=== PATIENT | female | born 1995 | race Caucasian/White ===

== ENCOUNTER 2020-09-27 15:34 | Emergency (ER) | payer BC, SELFPAY ==
[2020-09-27 15:48] VITALS: BP 100/66; PULSE 99; RESP 18; TEMP 37; O2SAT 100; BMI 19.3
[2020-09-27 15:55] VITALS: BP 100/66; PULSE 99; RESP 18; TEMP 37; O2SAT 100; BMI 19.3
--- NOTE | 2020-09-27 16:07 | HMH.EDUTC ---
[facility] [place] Disposition Clinical Impression: Impetigo Disposition: Home, Self-Care Condition on Discharge: Good Instructions: Impetigo, DI for Impetigo, Cephalexin, Mupirocin Additional Instructions: Apply ointment to area as prescribed Take oral medication as prescribed *Follow up with Family Doctor for test results of Herpes testing and further treatment if needed Return if needed FOllow up with Family Doctor for further treatment and evaluation Straight to ER if any life threatening symptoms Prescriptions: Mupirocin [Bactroban 2% Ointment 22gm tube] 1 applicatio TP TID 10 Days #1 tube Transmission Status: Received by [id number] cephALEXin [Keflex 500mg Cap] 500 mg PO Q6H 10 Days #40 cap Transmission Status: Received by [id number] Referrals: PCP,No [Primary Care Provider] - As needed Time of Disposition: 16:20 Medical Decision Making - William Inquiry Pt receiving controlled substance: No William was queried for this patient: No Vital Signs: 09/27/20 15:48 09/27/20 15:55 Temperature 98.6 F 98.6 F Temperature Source Oral Oral Pulse Rate [Left Radial] 99 H 99 H Respiratory Rate 18 18 Blood Pressure [Right Arm] 100/66 L 100/66 L Blood Pressure Mean [Right Arm] 77 77 Blood Pressure Source [Right Arm] Automatic Cuff Automatic Cuff Blood Pressure Position [Right Arm] Sitting Sitting 02 Sat by Pulse Oximetry 100 100 Oxygen Delivery Method Room Air Room Air Orders (Tests/Meds): ORDERS Category Date Time Status HSV 1/2 PCR, (CSF,WB,SERUM) Routine Lab 09/27/20 16:08 Ordered [facility] [place] HPI - General Stated complaint: rash on face Time Seen by Provider: 09/27/20 16:08 Mode of Arrival: Ambulatory Source of Information: Patient Limitations: No Limitations Description of Symptoms (Recalled from Triage Doc. by RN): pt states she has a rash on her upper lip that she noticed a few days ago. She has tried antibiotic ointment with no improvement. HEENT Symptoms (Recalled from RN notes): No Resp Symptoms (Recalled from RN notes): No Skin Symptoms (Recalled from RN notes): No MS Symptoms (Recalled from RN notes): No Functional Status (Recalled from RN notes): WNL - History of Present Illness Provider Complaint: Patient states that she noticed a rash on her upper lip States that it has continued to get worse States that today he has got larger and now goes up to her nose and is yellowish color so she come in to get it checked State that she was with someone recently that she heard has Herpes and she wanted to get checked for that too - Related Data Previous Rx's Medication Instructions Recorded Mupirocin [Bactroban 2% Ointment 1 applicatio TP TID 10 Days #1 tube 09/27/20 22gm tube] cephALEXin [Keflex 500mg Cap] 500 mg PO Q6H 10 Days #40 cap 09/27/20 Allergies Allergy/AdvReac Type Severity Reaction Status Date / Time No Known Allergies Allergy Verified 09/27/20 16:04 - Worker's Comp Is this a Worker's Comp case?: No [facility] History - Hepatitis A Screen Drug use history?: No High risk sexual behaviors?: No History of sexually transmitted infection?: No Currently employed?: No Childcare worker?: No Do you have indoor plumbing?: Yes Do you have electricity?: Yes Attestation statement:: This patient has been screened for Hepatitis A risk factors. I have reviewed the patient's past medical history: Yes - Social History Alcohol Intake: never Occupational Status: other ROS Obtained: Yes All systems reviewed & no additional complaints, Yes Systems reviewed as appropriate & no additional complaints - Constitutional Constitutional: Reports system reviewed and no additional complaints, except as docu - Integumentary/Breasts Skin/Breast: Reports lesions Physical Exam - General General appearance: alert, in no apparent distress - Expanded Head Exam 1 - Imeptigo like lesion noted with
[2020-09-27 16:32] VITALS: BP 100/66; PULSE 99; RESP 18; TEMP 37; O2SAT 100
[2020-09-29 12:03] LABS: HSV 2 IgG, Type Spec <0.91 index (0.00-0.90)
== END 2020-09-27 16:35 | disposition home or self-care (01) ==
PROVIDERS: Emergency Provider Nurse Practitioner
DX: L01.00 Impetigo, unspecified (principal)
CPT/HCPCS: 86695; 86790; 99201

== ENCOUNTER 2020-10-20 11:07 | Emergency (ER) | payer BC, SELFPAY ==
[2020-10-20 11:08] VITALS: BP 119/83; PULSE 67; RESP 16; TEMP 36.6; O2SAT 99; BMI 18.8
--- NOTE | 2020-10-20 11:21 | HMH.EDUTC ---
[facility] [place] Clinical Impression: Viral syndrome, Encounter for screening for COVID-19 Disposition: Home, Self-Care Condition on Discharge: Good Instructions: DI for Viral Upper Respiratory Infection -- Adult, DI for COVID-19 (Suspected or Confirmed ), Coronavirus Disease 2019, Preventing the Spread of Coronavirus Discharge Instructions Additional Instructions: *Monitor Temp, Over the counter Motrin or Tylenol as directed/as needed Tylenol every 4 hours and Motrin every 6 hours (as long as your family doctor has told you that you can take it) for fever or pain. and straight to ER if unable to lower temp less than 101.0 after medication given *Warm salt water gargles may help to soothe the throat *Throat Lozenges *Warm fluids like tea with honey may help to soothe the throat *Sleep elevated *Humidifier/Vaporizer Follow up IMMEDIATELY for new or worsening symptoms or no Noticeable improvement over the next 48-72 hours. 911 for difficulty breathing or swallowing You were tested for today for COVID19 your test result should be back in the next 24-48 hours, you may call to the [facility] to see if your test results are back in the next 48 hours [phone] [facility] hours are 9am-9pm You was given a handout with instructions for Self Quarantine and Self isolation for while you wait on test results and what to do if they are positive If you are positive the Health Dept will be contacting you also Referrals: PCP,No [Primary Care Provider] - As needed Forms: Work/School Release Time of Disposition: 11:32 Medical Decision Making - William Inquiry Pt receiving controlled substance: No William was queried for this patient: No Vital Signs: 10/20/20 11:08 Temperature 97.8 F Temperature Source Oral Pulse Rate [Right] 67 Respiratory Rate 16 Blood Pressure [Right Arm] 119/83 Blood Pressure Mean [Right Arm] 95 02 Sat by Pulse Oximetry 99 - Lab Data Lab results reviewed: Yes: I reviewed the patient's lab results. Orders (Tests/Meds): ORDERS Category Date Time Status Covid-19 Nasal PCR Sendout P&C Stat Lab 10/20/20 11:15 [place] [facility] [place] - General Stated complaint: body aches,headache Time Seen by Provider: 10/20/20 11:21 Description of Symptoms (Recalled from Triage Doc. by RN): pt request covid test pt c/o HOLM sore throat, body aches HEENT Symptoms (Recalled from RN notes): Yes Resp Symptoms (Recalled from RN notes): Yes Skin Symptoms (Recalled from RN notes): No MS Symptoms (Recalled from RN notes): No Functional Status (Recalled from RN notes): wnl - History of Present Illness Provider Complaint: Patient states that she is wanting to get tested for COVID States that she has been having scratchy throat, body aches, chills and headache State that she has not been around anyone that she is aware of but still wanted to get tested - Related Data Previous Rx's Medication Instructions Recorded Mupirocin [Bactroban 2% Ointment 1 applicatio TP TID 10 Days #1 tube 09/27/20 22gm tube] cephALEXin [Keflex 500mg Cap] 500 mg PO Q6H 10 Days #40 cap 09/27/20 Allergies Allergy/AdvReac Type Severity Reaction Status Date / Time No Known Allergies Allergy Verified 10/20/20 11:16 - Worker's Comp Is this a Worker's Comp case?: No Is this an H Worker's Comp?: No Is this a [place] Worker's Comp?: No [facility] History - Hepatitis A Screen Drug use history?: No High risk sexual behaviors?: No History of sexually transmitted infection?: No Currently employed?: No Childcare worker?: No Do you have indoor plumbing?: Yes Do you have electricity?: Yes Attestation statement:: This patient has been screened for Hepatitis A risk factors. I have reviewed the patient's past medical history: Yes - Social History Alcohol Intake: never Occupational Status: other ROS Obtained: Yes All systems reviewed & no additional complaints, Yes Systems reviewed as appropriate & no additional complaints - Constitutional
[2020-10-20 11:31] LABS: UTC Influenza A Antigen Negative (Negative)
[2020-10-20 11:32] LABS: UTC Influenza B Antigen Negative (Negative)
[2020-10-20 11:34] VITALS: BP 119/83; PULSE 67; RESP 16; TEMP 36.6; O2SAT 99
[2020-10-21 10:41] LABS: Covid-19 Nasal PCR Sendout P&C POSITIVE
--- NOTE | 2020-10-21 18:15 | PC.NURSE ---
PT NOTIFIED OF POSITIVE COVID RESULT
== END 2020-10-20 11:35 | disposition home or self-care (01) ==
PROVIDERS: Emergency Provider Nurse Practitioner
DX: U07.1 COVID-19 (principal)
CPT/HCPCS: 87804; 99202; G0463; U0004

== ENCOUNTER → 2021-09-17 12:57 | Outpatient (CLI) | payer BC, SELFPAY | PROVIDERS: Visit Provider Nurse Practitioner Family | DX: Z20.822 Contact with and (suspected) exposure to COVID-19 (principal) | CPT/HCPCS: C9803; U0003; U0005 ==

== ENCOUNTER 2022-03-20 18:51 | Emergency (ER) | payer OTHER, SELFPAY ==
[2022-03-20 18:53] VITALS: BP 127/91; PULSE 86; RESP 18; TEMP 36.8; O2SAT 100; BMI 19.9
--- NOTE | 2022-03-20 19:58 | HMH.EDGENADL ---
ED Disposition Clinical Impression: Laceration of right forearm Qualifiers: Encounter type: initial encounter Qualified Code(s): S51.811A - Laceration without foreign body of right forearm, initial encounter Disposition: Home, Self-Care Condition on Discharge: Good Instructions: DI for Laceration Repair Additional Instructions: You have been evaluated for lacerations to the right forearm. Please keep wounds clean, dry. Do not get them wet for 24 hours. Okay to shower normally after that. Sutures need to be removed in 7 to 10 days. Return to the emergency department or go to your primary care doctor. Return to the emergency department for any new or worsening symptoms, pain, bleeding, fever, wound drainage or any other concerns Referrals: Provider,Referral, MD [Primary Care Provider] - Time of Disposition: 20:05 - Critical Care Critical Care Time: No Attestation: On 03/20/22, the high probability of a clinically significant, sudden or life threatening deterioration of the following system(s) required my full and direct attention, intervention and personal management. The time I documented below is in addition to time spent performing reported procedures but includes the following listed in this critical care notation. Medical Decision Making - Medical Records Medical records reviewed: Yes: I reviewed the patient's medical records. - William Inquiry Pt receiving controlled substance: No Vital Signs: 03/20/22 18:53 Temperature 98.3 F Temperature Source Oral Pulse Rate [Apical] 86 Respiratory Rate 18 Blood Pressure [Right Arm] 127/91 H Blood Pressure Mean [Right Arm] 103 Blood Pressure Source [Right Arm] Automatic Cuff Blood Pressure Position [Right Arm] Sitting 02 Sat by Pulse Oximetry 100 Oxygen Delivery Method Room Air Orders (Tests/Meds): ED MEDICATIONS Discontinued Medications Generic Name Dose Route Start Last Admin Trade Name Gregq PRN Reason Stop Dose Admin Lidocaine HCl 5 ml 03/20/22 19:18 03/20/22 19:46 Lidocaine 1% 10ml Mdv SQ 03/20/22 19:19 5 ml ONCE ONE Administration Medical Decision Narrative: In summary this is a 26-year-old [id number] female presenting to the emergency department lacerations to the right forearm. Clinically stable on arrival. Vital signs within normal limits. Sensation intact in the right hand. 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 Strong radial and ulnar pulses. Wounds copiously irrigated and explored. Anesthetized with 1% lidocaine. No foreign bodies identified. She has no bony tenderness to suggest fracture. I suggested an x-ray. She says she does not have insurance, does not want to have x-rays performed. I believe this is reasonable. Tetanus updated. Lacerations repaired with sutures. Procedure well-tolerated. Patient counseled on wound care management. Recommended PCP follow-up for suture removal in 7 to 10 days. Given return precautions. Stable for discharge. General Adult HPI - General Chief complaint: Wound/Laceration Stated complaint: laceration Time Seen by Provider: 03/20/22 19:59 Mode of Arrival: Ambulatory Source of Information: Patient Limitations: No Limitations Description of Symptoms (Recalled from ER Triage Doc. by RN): pt states that roughly 10 minutes ago she put her right arm through a glass door putting 3 lacerations on her right wrist and outer arm. - History of Present Illness HPI narrative: 26-year-old male presenting to the emergency department with lacerations to the right arm. She was pushing on a glass door just prior to arrival, glass cracked and her arm slipped through it. She sustained a laceration near the elbow. No other laceration near the wrist on the thumb side. She had bleeding. Now controlled. Denies any pain with wrist or elbow motion. No numbness, weakness, tingling in the right hand. She is right-hand dominant. Not know her most recent tetanus vaccine. No medica
[2022-03-20 20:07] VITALS: BP 124/62; PULSE 78; RESP 17; TEMP 36.7; O2SAT 99
== END 2022-03-20 20:15 | disposition home or self-care (01) ==
PROVIDERS: Emergency Provider Emergency Medicine
DX: S51.811A Laceration without foreign body of right forearm, initial encounter (principal); Z23 Encounter for immunization
CPT/HCPCS: 12002; 90471; 90715; 99283

== ENCOUNTER 2022-03-30 15:22 | Emergency (ER) | payer OTHER, SELFPAY ==
[2022-03-30 15:54] VITALS: BP 120/48; PULSE 77; RESP 16; TEMP 36.8; O2SAT 96; BMI 19.9
[2022-03-30 15:56] VITALS: BP 120/48; PULSE 77; RESP 16; TEMP 36.8
== END 2022-03-30 16:26 | disposition home or self-care (01) ==
LOC: UTC 16:24
PROVIDERS: Emergency Provider Nurse Practitioner Family
DX: Z48.02 Encounter for removal of sutures (principal)
CPT/HCPCS: 99211; G0463

== ENCOUNTER 2023-10-23 18:15 | Emergency (ER) | payer BC, OTHER, SELFPAY ==
[2023-10-23 18:17] VITALS: BP 130/89; PULSE 66; RESP 16; TEMP 36.6; O2SAT 100
--- NOTE | 2023-10-23 18:40 | ED_ITS ---
Discharge Plan Disposition Patient Disposition: Home, Self-Care Prescriptions Prescriptions: New amoxicillin-pot clavulanate 875-125 mg tablet 1 tab PO BID 7 Days Qty: 14 0RF No Action cephalexin 500 MG capsule 500 mg PO Q6H 10 Days Qty: 40 0RF mupirocin 22 GM ointment 1 applicatio TP TID 10 Days Qty: 1 0RF Referrals Follow up/Referrals: Provider,Referral, MD [Primary Care Provider] - See instructions Activity Restrictions/Add. Instructions Additional Instructions/Restrictions: Call your family doctor to establish care for this visit to the emergency department and schedule follow-up within 48 hours to ensure improvement. If you have any worsening of your condition or any other concerning signs or symptoms, return to the emergency department or your primary care doctor for further evaluation. If you begin to have fevers, facial swelling, redness, or pain opening jaw, begin taking Augmentin. Be sure to follow-up with dentistry Clinical Impressions Clinical Impression: Pain due to dental caries Discharge ED Provider: Ifeanyi Paz General Adult HPI General Chief complaint: Dental/Oral Stated complaint: tooth ache on left side Time Seen by Provider: 10/23/23 18:17 Mode of Arrival: Ambulatory Source of Information: Patient Limitations: No Limitations Description of Symptoms (Recalled from ER Triage Doc. by RN): Patient reports a broken tooth on the left side, in the back of her mouth. Complaint of pain and swelling for a while now. States that she hasn't had time to go to the dentist to have the tooth fixed. History of Present Illness HPI narrative: Otherwise healthy 28-year-old female with history of dental caries presenting with dental pain. Has been going on for a few weeks. Got worse acutely yesterday into today. Having difficulty chewing secondary to pain. No facial swelling, difficulty or pain with range of motion of neck, pain with swallowing, fever chills, or any other concerns. Does not know if it has impacted wisdom teeth, or infection so presents for further evaluation. Related Data Previous Rx's Medication Instructions Recorded cephalexin 500 mg capsule 500 mg PO Q6H 10 days #40 caps 09/27/20 mupirocin 2 % topical ointment 1 applicatio TP TID 10 days #1 tube 09/27/20 amoxicillin 875 mg-potassium 1 tab PO BID 7 days #14 tabs 10/23/23 clavulanate 125 mg tablet Allergies Allergy/AdvReac Type Severity Reaction Status Date / Time No Known Allergies Allergy Verified 10/20/20 11:16 [facility] Disclaimer: The information contained in this section may have been updated after the patient was seen, as this information can be updated by other users. Social History Smoking Status: Current every day smoker alcohol intake: never current occupational status: other Travel in the last 8 weeks: None ROS Obtained: Yes All systems reviewed & no additional complaints except as documented Physical Exam General General appearance: alert and in no apparent distress Head Head exam: atraumatic and normocephalic Eye Eye exam: Present normal appearance, PERRL and EOMI ENT ENT exam: Present mucous membranes moist and other (No facial swelling, trismus, oropharyngeal swelling, evidence of gingivitis, infection, abscess, or any other concerns. No lymphadenopathy) Neck Neck exam: Present normal inspection, full ROM and trachea midline Respiratory Respiratory exam: Absent respiratory distress, wheezes, stridor, accessory muscle use or prolonged expiratory phase Cardiovascular Cardiovascular exam: Present normal rhythm Abdominal Exam Abdominal exam: Present soft; Absent distention, tenderness, guarding, rebound or rigidity Extremities Exam Extremities exam: Absent edema Neurological Exam Neurological exam: Present alert, oriented X3, CN II-XII intact and normal gait; Absent motor sensory deficit Skin Skin exam: Present warm and dry; Absent diaphoresis or erythema Medical Decision Making Medical Records Medical records reviewed: Yes I reviewed the patient's medical records. William Inquiry Pt receiving controlled substance: No William was queried for this patient: No Vital Signs: 10/23/23 18:17 Temperature 97.8 F Temperature Source Oral Pulse Rate [Radial] 66 Respiratory Rate 16 Blood Pressure [Right Arm] 130/89 Blood Pressure Mean [Right Arm] 102 Blood Pressure Source [Right Arm] Automatic Cuff Blood Pressure Position [Right Arm] Sitting 02 Sat by Pulse Oximetry 100 Oxygen Delivery Method Room Air Orders (Tests/Meds): ED MEDICATIONS Discontinued Medications Generic Name Dose Route Start Last Admin Trade Name Freq PRN Reason Stop Dose Admin Acetaminophen 1,000 mg 10/23/23 18:38 10/23/23 18:44 Acetaminophen 500mg Tab PO 10/23/23 18:39 1,000 mg ONCE ONE Administration Benzocaine/Butamben/Tetracaine HCl 1 gm 10/23/23 18:39 10/23/23 18:46 Tetracaine/Benzocaine/Butamben 56 Gm Howard TP 10/23/23 18:40 1 gm ONCE ONE Administration Ibuprofen 800 mg 10/23/23 18:39 10/23/23 18:46 Ibuprofen 800 Mg Tablet PO 10/23/23 18:40 800 mg ONCE ONE Administration Lidocaine HCl 15 ml 10/23/23 18:38 10/23/23 18:44 Lidocaine 2% Viscous Magaly 15ml Udc PO 10/23/23 18:39 15 ml ONCE ONE Administration Medical Decision Narrative: Otherwise healthy 28-year-old female with history of dental caries presenting with dental pain. Has been going on for a few weeks. Got worse acutely yesterday into today. Having difficulty chewing secondary to pain. No facial swelling, difficulty or pain with range of motion of neck, pain with swallowing, fever chills, or any other concerns. Does not know if it has impacted wisdom teeth, or infection so presents for further evaluation.. It should be noted that patient has numerous dental caries, just got her insurance, so was supposed to be following up with dentistry in the next couple days to weeks. History was obtained via conversation with patient. On arrival, patient hemodynamically stable, alert, oriented x4, appropriate, GCS 15, moving all extremities spontaneously, pupils equal and reactive to light. Full physical exam performed and significant for dental caries without excessively poor dentition. Previous fillings in place, but no evidence of trismus, abscess, gingivitis, swelling, facial swelling, lymphadenopathy, or any other concerns for infection. Normal range of motion of neck. Differential includes pulpitis, developing odontogenic infection, impacted wisdom teeth, among others. Patient was given dental balls, Tylenol, Motrin for symptomatic management and correction of underlying abnormalities. On reevaluation, patient resting comfortably after dental balls. Because patient has no signs or symptoms of infection, I recommended not starting antibiotic today. Because patient does have a history of odontogenic infections requiring antibiotics, I did send a watch and wait prescription to the pharmacy of choice and this was discussed with patient, she voiced her understanding and agreement. Because patient at baseline without signs or symptoms of clinical decompensation, deemed appropriate for discharge. Results were relayed to patient who voiced understanding and were agreeable to outpatient management and follow up. At the time of discharge the patient was hemodynamically stable, tolerating PO, and mobilizing appropriately. Critical Care Critical Care Time Critical Care Time: No
[2023-10-23] MEDS: LIDOCAINE 2% VISCOUS SOL 15ML UDC 15 ML PO (18:44)
[2023-10-23] MEDS: ACETAMINOPHEN 500MG TAB 1000 MG PO (18:44)
[2023-10-23] MEDS: TETRACAINE/BENZOCAINE/BUTAMBEN 56 GM SPRAY TP (18:46)
[2023-10-23] MEDS: IBUPROFEN 800 MG TABLET PO (18:46)
[2023-10-23 19:06] VITALS: BP 113/55; PULSE 66; RESP 16; TEMP 36.6; O2SAT 100
== END 2023-10-23 19:06 | disposition home or self-care (01) ==
PROVIDERS: Emergency Provider Emergency Medicine
DX: K02.9 Dental caries, unspecified (principal); F17.210 Nicotine dependence, cigarettes, uncomplicated
CPT/HCPCS: 99283